=== PATIENT | male | born 1985 | race African-American/Black ===

== ENCOUNTER 2018-12-17 13:28 | Emergency (ER) | payer BC ==
[~2018-12-17] VITALS: Ht 170.2 cm; Wt 61.2 kg
[~2018-12-17 13:28] MED LIST: NAPROXEN250 MG ORAL; NORCO 5-325 TA1 EACH PO; SOMA350 MG PO
[2018-12-17 13:30] VITALS: BP 109/62
[2018-12-17] MEDS ORDERED: NKM (13:32)
--- NOTE | 2018-12-17 13:35 | NUR ---
ED Nurse Note: Pt. AAox4.ambulatory. Pt. came in to ER due to chronic back pain. per pt. needs a referral because pain is getting worse. No s/s of acute distress noted. VSS
[2018-12-17] MEDS ORDERED: VOLTAREN100 G1 TP (13:45)
--- NOTE | 2018-12-17 13:45 | Emergency Room Report ---
History of Present Illness General Chief Complaint: Back Pain-No Injury Source: Patient Present Illness HPI 33-year-old male with history of chronic back pain with no recent injury here requesting a list of free clinics to go to for referral to pain management and Ortho. Patient reports that over the years he has had multiple extra beat put on his lower back and has caused a 10 out of 10 pain with radiation to right leg however denying numbness and tingling. Patient does not currently have a primary care physician and wants a few referrals. Denies any recent injury. Has been taking [id number] ibuprofen for pain however he reports that does not like to take pills for his pain. Denies chest pain, palpitation, bowel incontinence, urinary incontinence, saddle paresthesia, nausea vomiting, abdominal pain. He is also requesting a day off from work. Allergies: Coded Allergies: No Known Allergies (Unverified , 10/13/12) Patient History Past Medical History: see triage record Past Surgical History: unable to obtain Pertinent Family History: none Immunizations: UTD Reviewed Nursing Documentation: PMH: Agreed; PSxH: Agreed Nursing Documentation-PMH Past Medical History: No History, Except For Review of Systems All Other Systems: negative except mentioned in HPI Physical Exam Vital Signs Date Time Temp Pulse Resp B/P (MAP) Pulse Ox O2 Delivery O2 Flow Rate FiO2 12/17/18 13:30 98.2 67 15 109/62 98 Room Air Sp02 EP Interpretation: reviewed, normal General Appearance: normal inspection, well appearing, no apparent distress, alert, GCS 15 Head: normocephalic, atraumatic Eyes: bilateral eye normal inspection, bilateral eye PERRL ENT: normal ENT inspection, hearing grossly normal, normal pharynx Neck: normal inspection, full range of motion, supple, thyroid normal Respiratory: normal inspection, chest non-tender, lungs clear, no rhonchi, no wheezing Cardiovascular #1: normal inspection, normal peripheral pulses, regular rate, rhythm, no murmur Gastrointestinal: normal inspection, soft, no mass Rectal: deferred Genitourinary: no CVA tenderness Musculoskeletal: normal inspection, back normal, normal range of motion, non- tender Neurologic: normal inspection, alert, oriented x3, responsive Psychiatric: normal inspection, judgement/insight normal, memory normal Skin: normal inspection, normal color, no rash, warm/dry Lymphatic: normal inspection, no adenopathy Medical Decision Making MATTIE Attestation All my diagnosis and treatment plans were reviewed ad discussed with my supervising physician Dr. Wetzel Diagnostic Impression: Primary Impression: Chronic back pain ER Course 33-year-old male with history of chronic back pain with no recent injury here requesting a list of free clinics to go to for referral to pain management and Ortho. Patient reports that over the years he has had multiple extra beat put on his lower back and has caused a 10 out of 10 pain with radiation to right leg however denying numbness and tingling. Patient does not currently have a primary care physician and wants a few referrals. Denies any recent injury. Has been taking [id number]-nyy-houyrlw ibuprofen for pain however he reports that does not like to take pills for his pain. Denies chest pain, palpitation, bowel incontinence, urinary incontinence, saddle paresthesia, nausea vomiting, abdominal pain. He is also requesting a day off from work. Ddx considered but are not limited to: Lumbar spine strain, lumbar spine fracture, lumbar spine sprian, chronic back pain Vital signs: are WNL, pt. is afebrile H&PE are most consistent with: Chronic low back pain ORDERS: Voltaren gel ED INTERVENTIONS: None required at this time. DISCHARGE: At this time pt. is stable for d/c to home. Will provide printed patient care instructions, and any necessary prescriptions. Care plan and follow up instructions have been discussed with the patient prior to discharge. I gave patient a list of free family clinics to walk-in to for further referrals for Ortho and physical therapy. No imaging needed at this point and this pain has been going on for several years he is aware to follow-up with pain management and physical therapy Last Vital Signs Date Time Temp Pulse Resp B/P (MAP) Pulse Ox O2 Delivery O2 Flow Rate FiO2 12/17/18 13:30 98.2 67 15 109/62 (78) 98 Room Air Disposition: HOME, SELF-CARE Condition: Stable Scripts Diclofenac Sodium (VOLTAREN) 100 Gm Gel..gram. 2 GM TP TID, #100 GM Prov: Dayday Heard 12/17/18 Patient Instructions: Back Pain, Adult Dayday Heard Dec 17, 2018 13:45
[2018-12-17 13:58] VITALS: BP 109/62
--- NOTE | 2018-12-17 13:59 | NUR ---
ER DISCHARGE NOTE: Patient is cleared to be discharged per ERMD, pt is aox4, on room air, with stable vital signs. pt was given dc and prescription instructions, pt was able to verbalize understanding, pt id band removed. pt is able to ambulate with steady gait. pt took all belongings.
== END 2018-12-17 13:45 | disposition home or self-care (01) ==
LOC: EMR 13:40
DX: G89.29 Other chronic pain (principal); M54.5 Low back pain; M79.604 Pain in right leg
CPT/HCPCS: 99282